=== PATIENT | male | born 2005 | race Asian ===

== ENCOUNTER 2024-06-11 19:05 | Emergency (ER) | payer OTHER ==
[2024-06-11] MEDS ORDERED: IBUPROFEN 400 MG TAB ONE (20:06)
[2024-06-11] MEDS ORDERED: ACETAMINOPHEN 500 MG TAB ONE (20:06)
--- NOTE | 2024-06-11 20:17 | ER ---
Nurse's Notes [facility] Name: Chay Knox Age: 18 yrs Sex: Male : 2005 Arrival Date: 06/11/2024 Time: 19:05 Bed 7 Private MD: Diagnosis: Acute post-traumatic headache Presentation: 06/11 19:23 Chief complaint: Patient states: an ice machine lid fell on his head around noon today, me1 No LOC. C/o headache since then 11/02 to frontal area. Coronavirus screen: Vaccine status: Patient reports receiving the 2nd dose of the covid vaccine. Ebola Screen: No symptoms or risks identified at this time. Initial Sepsis Screen: Does the patient meet any 2 criteria? No. Patient's initial sepsis screen is negative. Does the patient have a suspected source of infection? No. Patient's initial sepsis screen is negative. Risk Assessment: Do you want to hurt yourself or someone else? Patient reports no desire to harm self or others. Onset of symptoms was June 11, 2024 at 12:15. 19:23 Method Of Arrival: Ambulatory wi1 19:23 Acuity: ABRIL 4 me1 Historical: - Home Meds: 19:24 None [Active]; me1 - PMHx: 19:24 None; me1 - PSHx: 19:24 None; me1 - Immunization history:: Adult Immunizations up to date. - Infectious Disease History:: Denies. - Social history:: Smoking status: Patient denies any tobacco usage or history of. Screenin:26 [facility] ED Fall Risk Assessment (Adult) History of falling in the last 3 months, ha1 including since admission No falls in past 3 months (0 pts) Confusion or Disorientation No (0 pts) Intoxicated or Sedated No (0 pts) Impaired Gait No (0 pts) Mobility Assist Device Used No (0 pt) Altered Elimination No (0 pt) Score/Fall Risk Level 0 - 2 = Low Risk Oriented to surroundings, Maintained a safe environment, Educated pt \T\ family on fall prevention, incl call for assistance when getting out of bed, Hourly rounding (assess needs \T\ fall precautionary measures) done. Abuse screen: Denies threats or abuse. Denies injuries from another. Nutritional screening: No deficits noted. Tuberculosis screening: No symptoms or risk factors identified. Assessment: 19:30 General: Appears comfortable, Behavior is calm, cooperative. Pain: Complains of pain in ha1 forehead Pain does not radiate. Pain currently is 5 out of 10 on a pain scale. Quality of pain is described as aching. Neuro: Level of Consciousness is awake, alert, obeys commands, Oriented to person, place, time, situation. Cardiovascular: Capillary refill < 3 seconds Patient's skin is warm and dry. Respiratory: Airway is patent Respiratory effort is even, unlabored, Respiratory pattern is regular, symmetrical. GI: No signs and/or symptoms were reported involving the gastrointestinal system. : No signs and/or symptoms were reported regarding the genitourinary system. Derm: Skin is pink, warm \T\ dry. Musculoskeletal: Circulation, motion, and sensation intact. Range of motion: intact in all extremities. Vital Signs: 19:23 BP 135 / 99; Pulse 98; Resp 17; Temp 98.2; Pulse Ox 98% ; Weight 68 kg; Height 5 ft. 7 me1 in. ; Pain 6/10; 19:23 Body Mass Index 23.48 (68.00 kg, 170.18 cm) - Percentile 57.1 % me1 19:23 Pain Scale: Adult me1 Shilpa Coma Score: 22:33 Eye Response: spontaneous(4). Motor Response: obeys commands(6). Verbal Response: sb4 oriented(5). Total: 15. 22:34 Eye Response: spontaneous(4). Motor Response: obeys commands(6). Verbal Response: sb4 oriented(5). Total: 15. ED Course: 19:13 Patient arrived in ED. gm2 19:16 Patient has correct armband on for positive identification. Bed in low position. Call ha1 light in reach. Side rails up X 1. Adult w/ patient. 19:16 Provided Education on: PLAN OF CARE . Client placed on continuous cardiac and pulse ha1 oximetry monitoring. NIBP monitoring applied. 19:17 Linnette Whalen PA-C is PHCP. sb4 19:17 Bonifacio Yots MD is Attending Physician. sb4 19:24 Triage completed. me1 19:24 Arm band placed on Patient placed in an exam room. me1 19:58 Annel Santana RN is Primary Nurse. ha1 20:27 No provider procedures requiring assistance completed. ha1 20:31 Patient did not have IV access during this emergency room visit. ha1 Administered Medications: 20:11 Drug: Acetaminophen PO 1000 mg PO once Route: PO; ha1 20:26 Follow up: Response: No adverse reaction; Marked relief of symptoms; Pain is decreased ha1 20:11 Drug: Ibuprofen PO 800 mg PO once Route: PO; ha1 20:26 Follow up: Response: No adverse reaction; Marked relief of symptoms; Pain is decreased ha1 Medication: 20:27 VIS not applicable for this client. ha1 Outcome: 20:16 Discharge ordered by . rick 20:30 Discharged to home ambulatory, with family, ha1 20:30 Condition: stable 20:30 Discharge instructions given to patient, family, Instructed on discharge instructions, follow up and referral plans. Demonstrated understanding of instructions, follow-up care, 20:31 Patient left the ED. ha1 Signatures: Annel Santana RN RN ha1 Linnette Whalen PA-C PALa sb4 Mayela Baker RN RN wi1 Tammy De Jesus 2
--- NOTE | 2024-06-11 20:17 | EDPHYS ---
Physician Documentation [facility] Name: Chay Knox Age: 18 yrs Sex: Male : 2005 Arrival Date: 06/11/2024 Time: 19:05 Bed 7 Private MD: ED Physician Bonifacio Yost HPI: 06/11 22:33 This 18 yrs old Male presents to ER via Ambulatory with complaints of Head Injury sb4 Without LOC-Adult. 22:33 The patient or guardian reports injury, pain. The complaints affect the top of head. sb4 Context of injury: The problem was sustained at work, resulted from a direct blow, a solid object. Onset: The symptoms/episode began/occurred today. Associated signs and symptoms: The patient has no apparent associated signs or symptoms, Loss of consciousness: This patient did not experience any loss of consciousness. Pertinent positives: headache, Pertinent negatives: the patient has not experienced a loss of conciousness, biting tongue, dazed, double vision, nausea, seizure, vomiting, weakness in extremities, generalized weakness. Historical: - Home Meds: 19:24 None [Active]; me1 - PMHx: 19:24 None; me1 - PSHx: 19:24 None; me1 - Immunization history:: Adult Immunizations up to date. - Infectious Disease History:: Denies. - Social history:: Smoking status: Patient denies any tobacco usage or history of. ROS: 22:33 Constitutional: Negative for fever, chills, and weight loss, sb4 22:33 Neuro: Positive for headache, 22:33 All other systems are negative, Exam: 22:33 Constitutional: This is a well developed, well nourished patient who is awake, alert, sb4 and in no acute distress. Head/Face: Normocephalic, atraumatic. Eyes: Extra-ocular motions intact. Periorbital areas with no swelling, redness, or edema. ENT: Mucous membranes moist. Cardiovascular: Regular rate and rhythm with a normal S1 and S2. Respiratory: No increased work of breathing, no retractions or nasal flaring. Abdomen/GI: Soft, non-tender, no distension. Skin: Warm, dry with normal turgor. Normal color with no rashes, no lesions, and no evidence of cellulitis. MS/ Extremity: Pulses equal, no cyanosis. Neurovascular intact. Full, normal range of motion. Neuro: Awake and alert, GCS 15, oriented to person, place, time, and situation. Motor strength 5/5 in all extremities. Sensory grossly intact. Vital Signs: 19:23 BP 135 / 99; Pulse 98; Resp 17; Temp 98.2; Pulse Ox 98% ; Weight 68 kg; Height 5 ft. 7 me1 in. ; Pain 6/10; 19:23 Body Mass Index 23.48 (68.00 kg, 170.18 cm) - Percentile 57.1 % me1 19:23 Pain Scale: Adult me1 Shilpa Coma Score: 22:33 Eye Response: spontaneous(4). Motor Response: obeys commands(6). Verbal Response: sb4 oriented(5). Total: 15. 22:34 Eye Response: spontaneous(4). Motor Response: obeys commands(6). Verbal Response: sb4 oriented(5). Total: 15. MDM: 19:21 Medical Screening Exam initiated sb4 22:34 Data reviewed: vital signs, nurses notes, and as a result, I will discharge patient. sb4 Scoring Tools [place] Head Injury/Trauma Rule GCS < 15 at 2 hours post-injury No Suspected open or depressed skull fracture No Any signs of basilar skull fracture? (Hemotympanum, raccoon eyes, Engle's Sign, CSF dillan-/rhinorrhea) No >/=2 episodes of vomiting No Age >/=65 years No Medium Risk Criteria: In addition to above, rules out "clinically important" brain injury: Retrograde amnesia to the event >/= 30 minutes No "Dangerous" mechanism? No. 22:35 Counseling: I had a detailed discussion with the patient and/or guardian regarding the sb4 historical points, exam findings, and any diagnostic results supporting the discharge/admit diagnosis, to return to the emergency department if symptoms worsen or persist or if there are any questions or concerns that arise at home. 06/12 00:09 Differential diagnosis: Concussion without LOC. headache. sb4 Administered Medications: 06/11 20:11 Drug: Acetaminophen PO 1000 mg PO once Route: PO; ha1 20:26 Follow up: Response: No adverse reaction; Marked relief of symptoms; Pain is decreased ha1 20:11 Drug: Ibuprofen PO 800 mg PO once Route: PO; ha1 20:26 Follow up: Response: No adverse reaction; Marked relief of symptoms; Pain is decreased ha1 Disposition Summary: 06/11/24 20:16 Discharge Ordered Notes: Location: Home sb4 Problem: new sb4 Symptoms: have improved sb4 Condition: Stable sb4 Diagnosis - Acute post-traumatic headache sb4 Followup: sb4 - With: Emergency Department - When: As needed - Reason: Trouble breathing, Worsening of condition Discharge Instructions: - Discharge Summary Sheet sb4 - Head Injury, Adult, [id number] sb4 Forms: - Patient Portal Instructions sb4 - Leadership Thank You Letter sb4 Addendum: 06/14/2024 07:02 Co-signature as Attending Physician, Bonifacio Yost MD I reviewed the patient's care r n provided by the Advanced Practice Provider and agree with the diagnosis and treatment plan. Signatures: Bonifacio Yost MD MD rn Ayala, Heidy, RN RN ha1 Linnette Whalen, PA-C PA-C sb4 Mayela Baker RN RN me1
[2024-06-11 20:36] VITALS: BP 135/99; TEMP 98.2; O2SAT 98
== END 2024-06-11 20:31 | disposition home or self-care (01) ==
LOC: ER 19:05
DX: G44.319 Acute post-traumatic headache, not intractable (principal)
CPT/HCPCS: 99283

== ENCOUNTER 2024-08-09 13:26 | Emergency (ER) | payer OTHER ==
[2024-08-09 14:50] LABS: Absolute Eosinophils 0.4 K/uL (0-0.5); Absolute Lymphocytes (CBC) 1.4 K/uL (0.7-4.9); Absolute Monocytes 1.1 K/uL (0.1-1.3); Absolute Neutrophil 3.8 K/uL (1.8-8.0); Basophils % 0.4 % (0-1.3); Eosinophils % 5.4 % (0-4.4); Hematocrit 47.9 % (39.6-49.0); Hemoglobin 16.5 g/dL (13.6-17.9); Lymphocytes % 20.7 % (15.3-44.8); MCHC 34.5 g/dL (32.0-36.0); MCV 84.1 fL (80-100); MPV 7.5 fL (7.6-11.3); Monocytes % 16.6 % (3.3-12.3); Neutrophils % 56.9 % (41.7-73.7); Nucleated Red Blood Cells % 0.1 % (0-0); Platelets 292 thou/uL (152-406); Red Cell Distribution Width 13.2 % (12.1-15.2)
[2024-08-09 15:03] LABS: Albumin 3.9 g/dL (3.4-5.0); Albumin/Globulin Ratio 1.1 (1.1-1.8); Anion Gap 10.1 mEq/L (5.0-15.0); Bilirubin Total 0.4 mg/dL (0.2-1.0); Globulin 3.7 g/dL (2.3-3.5); Potassium 4.1 mEq/L (3.5-5.1); Protein, Total 7.6 g/dL (6.4-8.2)
[2024-08-09] MEDS ORDERED: NA CHLORIDE 0.9% 1,000 ML ONE (15:06)
--- NOTE | 2024-08-09 16:07 | EDPHYS ---
Physician Documentation [facility] Name: Chay Knox Age: 18 yrs Sex: Male : 2005 Arrival Date: 08/09/2024 Time: 13:26 Bed 11 Private MD: ED Physician Mat Jamison HPI: 08/09 13:52 This 18 yrs old Male presents to ER via Ambulatory with complaints of Doesn't ms3 Feel Right, Diarrhea. 13:52 18-year-old male with no past medical history presents to the emergency department for ms3 abdominal discomfort, dizziness when standing, and diarrhea that began this morning. Patient denies pain at this time. He denies any alleviating or inciting factors. Patient states his sister was seen in the emergency department yesterday with similar symptoms and was diagnosed with dehydration.. Historical: - Allergies: 13:44 No Known Allergies; ll1 - Home Meds: 13:44 None [Active]; ll1 - PMHx: 13:44 None; ll1 - PSHx: 13:44 None; ll1 - Immunization history:: Adult Immunizations up to date. - Social history:: Smoking status: Patient denies any tobacco usage or history of. ROS: 13:52 Constitutional: Negative for fever, and chills. Cardiovascular: Negative for chest ms3 pain, and palpitations. Respiratory: Negative for shortness of breath, cough, wheezing, and pleuritic chest pain, 13:52 MS/Extremity: Negative for injury and deformity, Skin: Negative for injury, rash, and discoloration, 13:52 Abdomen/GI: Positive for diarrhea, Exam: 13:52 Constitutional: This is a well developed, well nourished patient who is awake, alert, ms3 and in no acute distress. Cardiovascular: Regular rate and rhythm with a normal S1 and S2. No gallops, murmurs, or rubs. Normal PMI, no JVD. No pulse deficits. Respiratory: Lungs have equal breath sounds bilaterally, clear to auscultation and percussion. No rales, rhonchi or wheezes noted. No increased work of breathing, no retractions or nasal flaring. Abdomen/GI: Soft, non-tender, with normal bowel sounds. No distension or tympany. No guarding or rebound. No evidence of tenderness throughout. Skin: Warm, dry with normal turgor. Normal color with no rashes, no lesions, and no evidence of cellulitis. Vital Signs: 13:45 BP 141 / 93; Pulse 79; Resp 16; Temp 97.7; Pulse Ox 99% ; Weight 68 kg; Height 5 ft. 6 ll1 in. ; Pain 0/10; 13:45 Body Mass Index 24.20 (68.00 kg, 167.64 cm) - Percentile 64.1 % ll1 13:45 Pain Scale: Adult ll1 MDM: 13:51 Medical Screening Exam initiated ms3 13:52 Differential diagnosis: Nonspecific abd pain, viral gastroenteritis, Electrolyte ms3 abnormality. 17:36 Data reviewed: vital signs, nurses notes, lab test result(s), and as a result, I will ms3 discharge patient. I considered the following discharge prescriptions or medication management in the emergency department Medications were administered in the Emergency Department. See MAR. Counseling: I had a detailed discussion with the patient and/or guardian regarding the historical points, exam findings, and any diagnostic results supporting the discharge/admit diagnosis, lab results, the need for outpatient follow up, to return to the emergency department if symptoms worsen or persist or if there are any questions or concerns that arise at home. Special discussion: I discussed with the patient/guardian in detail that at this point there is no indication for admission to the hospital. It is understood, however, that if the symptoms persist or worsen the patient needs to return immediately for re-evaluation. ED course: On reevaluation patient's symptoms improved, patient is alert and oriented x 4, no apparent distress, nontoxic-appearing, abdomen remains benign. Discussed elevated blood pressure reading with patient and he is to follow-up with primary care in 2 to 3 days for reevaluation. All questions were answered. Return precautions discussed include worsening symptoms, or any other concerns.. 08/09 13:52 Order name: CBC with Diff; Complete Time: 15:08/09 13:52 Order name: CMP; Complete Time: 15:3 08/09 13:52 Order name: IV Saline Lock; Complete Time: 14:38 ms3 08/09 13:52 Order name: Labs collected and sent; Complete Time: 14:38 ms3 Administered Medications: 15:25 Drug: NS 0.9% IV 1000 ml IV at 1 bolus Per protocol; to be given as a bolus over 60 ss minutes Route: IV; Rate: 1 bolus; Site: right antecubital; 16:27 Follow up: IV Status: Completed infusion; IV Intake: 1000ml ss Disposition Summary: 08/09/24 16:07 Discharge Ordered Notes: Location: Home ms3 Condition: Stable ms3 Diagnosis - Diarrhea, unspecified ms3 - Elevated blood-pressure reading, without diagnosis of hypertension ms3 Followup: ms3 - With: Valeriano Slater DO - When: 2 - 3 days - Reason: Re-evaluation by your physician Discharge Instructions: - Discharge Summary Sheet ms3 - Food Choices to Help Relieve Diarrhea, Adult ms3 - Diarrhea, Adult ms3 - Hypertension, Adult, [id number] ms3 - DASH Eating Plan ms3 Forms: - Medication Reconciliation Form ms3 - Antibiotic Education ms3 - Prescription Opioid Use ms3 - Patient Portal Instructions ms3 - Leadership Thank You Letter ms3 Signatures: Dispatcher [employer] Piper Reid RN RN ss Kenan Aragon RN RN [facility] Mat Jamison DO DO ms3
--- NOTE | 2024-08-09 16:07 | ER ---
Nurse's Notes [facility] Name: Chay Knox Age: 18 yrs Sex: Male : 2005 Arrival Date: 08/09/2024 Time: 13:26 Bed 11 Private MD: Diagnosis: Diarrhea, unspecified;Elevated blood-pressure reading, without diagnosis of hypertension Presentation: 08/09 13:45 Chief complaint: Patient states: Abdominal cramping, low grade fever, nausea, and ll1 diarrhea for 2 days. Coronavirus screen: Client denies travel out of the [place] in the last 14 days. diarrhea, fatigue, fever, nausea, Client presents with at least one sign or symptom that may indicate coronavirus-19. Standard/surgical mask placed on the client. Ebola Screen: Patient denies travel to an Ebola-affected area in the 21 days before illness onset. Initial Sepsis Screen: Does the patient meet any 2 criteria? No. Patient's initial sepsis screen is negative. Does the patient have a suspected source of infection? No. Patient's initial sepsis screen is negative. Risk Assessment: Do you want to hurt yourself or someone else? Patient reports no desire to harm self or others. Onset of symptoms was August 08, 2024. 13:45 Method Of Arrival: Ambulatory ll1 13:45 Acuity: ABRIL 3 ll1 Triage Assessment: 13:46 General: Appears uncomfortable, Behavior is calm, cooperative, appropriate for age. ll1 General: Reports fatigue for. Pain: Denies pain. GI: Reports cramping, diarrhea, nausea. Historical: - Allergies: 13:44 No Known Allergies; ll1 - Home Meds: 13:44 None [Active]; ll1 - PMHx: 13:44 None; ll1 - PSHx: 13:44 None; ll1 - Immunization history:: Adult Immunizations up to date. - Social history:: Smoking status: Patient denies any tobacco usage or history of. Screenin:20 [facility] ED Fall Risk Assessment (Adult) History of falling in the last 3 months, ss including since admission No falls in past 3 months (0 pts). Abuse screen: Denies threats or abuse. Denies injuries from another. Nutritional screening: No deficits noted. Tuberculosis screening: Never had TB. Assessment: 16:20 Reassessment: Patient appears in no apparent distress at this time. Patient and/or ss family updated on plan of care and expected duration. Pain level reassessed. Patient is alert, oriented x 3, equal unlabored respirations, skin warm/dry/pink. Patient states feeling better. Patient states symptoms have improved. Neuro: Level of Consciousness is awake, alert, obeys commands. Respiratory: Respiratory effort is even, unlabored. Vital Signs: 13:45 BP 141 / 93; Pulse 79; Resp 16; Temp 97.7; Pulse Ox 99% ; Weight 68 kg; Height 5 ft. 6 ll1 in. ; Pain 0/10; 13:45 Body Mass Index 24.20 (68.00 kg, 167.64 cm) - Percentile 64.1 % ll1 13:45 Pain Scale: Adult ll1 ED Course: 13:29 Patient arrived in ED. im 13:37 Arm band placed on. ll1 13:40 Mat Jamison DO is Attending Physician. ms3 13:46 Triage completed. ll1 14:38 Initial lab(s) drawn, by me, sent to lab. Inserted saline lock: 20 gauge in right kb4 antecubital area, using aseptic technique. Blood collected. Flushed with 10 mL NS. 15:47 Piper Valera, ALESSANDRA is Primary Nurse. ss 16:07 Valeriano Slater DO is Referral Physician. ms3 16:20 Patient has correct armband on for positive identification. ss 16:20 No provider procedures requiring assistance completed. Patient did not have IV access ss during this emergency room visit. Administered Medications: 15:25 Drug: NS 0.9% IV 1000 ml IV at 1 bolus Per protocol; to be given as a bolus over 60 ss minutes Route: IV; Rate: 1 bolus; Site: right antecubital; 16:27 Follow up: IV Status: Completed infusion; IV Intake: 1000ml ss Medication: 16:20 VIS not applicable for this client. ss Intake: 16:27 IV: 1000ml; Total: 1000ml. ss Outcome: 16:07 Discharge ordered by . ms3 16:20 Discharged to home ambulatory, ss 16:20 Condition: good 16:28 Discharge instructions given to patient, Instructed on discharge instructions, follow ss up and referral plans. Demonstrated understanding of instructions, follow-up care, 16:28 Patient left the ED. ss Signatures: Piper Valera, RN RN ss Kenan Aragon, ALESSANDRA RN ll1 Mat Jamison, DO DAHL ms3 Deisi Nieto Kayla kb4
[2024-08-09 16:51] VITALS: BP 141/93; TEMP 97.7; O2SAT 99
== END 2024-08-09 16:28 | disposition home or self-care (01) ==
LOC: ER 13:26
DX: R19.7 Diarrhea, unspecified (principal); R03.0 Elevated blood-pressure reading, without diagnosis of hypertension
CPT/HCPCS: 85025; 36415; 80053; 96360; 99284; J7030